=== PATIENT | female | born 1980 ===

== ENCOUNTER 2018-12-08 13:16 | Outpatient (CLI) | payer OTHER | END 2018-12-08 13:30 | disposition home or self-care (01) | LOC: OFIC 805 13:16 | DX: J32.9 Chronic sinusitis, unspecified (principal); G44.89 Other headache syndrome; H74.8X3 Other specified disorders of middle ear and mastoid, bilateral ==

== ENCOUNTER 2021-12-22 10:56 | Inpatient (IN) | payer OTHER ==
[~2021-12-22] VITALS: Ht 154.9 cm; Wt 48.1 kg
[2021-12-23] MEDS ORDERED: PRENATAL + DHA1 EAC1 (08:51)
[2021-12-23] MEDS ORDERED: PROGESTERONE200 MG (08:51)
== END 2021-12-24 09:46 | disposition home or self-care (01) | DRG 833 ==
LOC: NST 10:56 → LDR 13:11 → OB/GYN 12-23 08:48
PROVIDERS: ADMIT Obstetrics & Gynecology; ATTEND Obstetrics & Gynecology
PROC: 4A1HXCZ Monitoring of Products of Conception, Cardiac Rate, External Approach (ICD-10-PCS; principal; 2021-12-22)
DX: O60.03 Preterm labor without delivery, third trimester (principal); Z3A.21 21 weeks gestation of pregnancy; Z20.822 Contact with and (suspected) exposure to COVID-19

== ENCOUNTER 2022-01-15 09:05 | Outpatient (CLI) | payer OTHER ==
[~2022-01-15 09:05] MED LIST: PRENATAL + DHA1 EAC1; PROGESTERONE200 MG
== END 2022-01-15 10:37 | disposition home or self-care (01) ==
LOC: NST 09:05
PROVIDERS: ATTEND Obstetrics & Gynecology
DX: Z34.82 Encounter for supervision of other normal pregnancy, second trimester (principal)

== ENCOUNTER 2022-04-17 13:45 | Inpatient (IN) | payer OTHER ==
[~2022-04-17] VITALS: Ht 154.9 cm; Wt 54.9 kg
== END 2022-05-01 13:59 | disposition home or self-care (01) | DRG 807 ==
LOC: OB/GYN 04-29 07:32 → LDR 04-29 07:32 → OB/GYN 04-29 11:36 → SURH 04-30 13:45 → OB/GYN 05-01 13:59
PROVIDERS: ADMIT Obstetrics & Gynecology; ATTEND Obstetrics & Gynecology
PROC: 10E0XZZ Delivery of Products of Conception, External Approach (ICD-10-PCS; principal; 2022-04-29)
PROC: 4A1HXCZ Monitoring of Products of Conception, Cardiac Rate, External Approach (ICD-10-PCS; 2022-04-29)
DX: O80 Encounter for full-term uncomplicated delivery (principal); Z37.0 Single live birth; Z3A.39 39 weeks gestation of pregnancy; Z20.822 Contact with and (suspected) exposure to COVID-19